=== PATIENT | female | born 1995 | race Caucasian/White ===

== ENCOUNTER 2022-09-26 08:35 | Outpatient (CLI) | payer OTHER | END 2022-09-26 08:36 | disposition home or self-care (01) | LOC: SCSMRI 08:35 | PROVIDERS: ATTEND Internal Medicine | DX: K50.90 Crohn's disease, unspecified, without complications (principal); K76.9 Liver disease, unspecified | CPT/HCPCS: 74183 ==

== ENCOUNTER 2023-07-02 11:51 | Outpatient (CLI) | payer OTHER | END 2023-07-02 11:52 | disposition home or self-care (01) | LOC: SCSRAD 11:51 | PROVIDERS: ATTEND Family Medicine | DX: M79.671 Pain in right foot (principal) ==